=== PATIENT | male | born 1940 | race Caucasian/White ===

== ENCOUNTER 2018-10-05 11:58 | Inpatient (IN) | payer MEDICARE ==
[~2018-10-05] VITALS: Ht 152.4 cm; Wt 94.1 kg
[~2018-10-05 11:58] MED LIST: ANORO IH; ASPIRIN 81M81 MG/TA2 PO; BRILINTA90 MG PO; CARTIA XT120 MG PO; CLARITIN 1010 MG/TAB PO; GLUCOSAMINE & C1 CA1 PO; GOOD SENSE SLEE25 M1 PO; LIPITOR 80MG80 MG PO; LIPITOR20 MG PO; TOPROL XL 50MG50 MG PO; VASOTEC 2.2.5 MG/TAB PO
--- NOTE | 2018-10-15 08:48 | NUR ---
Pt arrived to room 306 ambulatory with admissions staff. Oriented to room and call light system. Will complete assessment. Pt is sitting up in the chair and he denies further needs. Call light within reach, will continue to monitor.
[2018-10-15] MEDS ORDERED: CARDIZEM CD 18180 MG PO (09:19)
[2018-10-15] MEDS ORDERED: COZAAR 25MG25 MG/TAB PO (09:20)
[2018-10-15] MEDS ORDERED: TESSALON P100 MG/CAP PO (09:21)
[2018-10-15] MEDS ORDERED: PLAVIX 75MG TAB75 MG PO (09:21)
[2018-10-15 09:23] LABS: BASO # 0.1 (0.0-0.2); BASO % 0.6 % (0.0-2.0); EOS # 0.7 (0.0-0.7); GRAN # 4.6 (1.4-6.5); GRAN % 56.9 % (42.2-75.2); HEMATOCRIT 39.3 % (42.0-52.0); HEMOGLOBIN 12.6 g/dl (13.5-18.0); MEAN CELL VOLUME 93 fl (80.0-100.0); MEAN CORPUSCULAR HEMOGLOBIN 30 pg (27.0-31.0); MEAN CORPUSCULAR HGB CONC 32 g/dl (33.0-37.0); MEAN PLATELET VOLUME 8.6 fl (7.4-10.4); MONO # 0.7 (0.1-0.6); MONO % 9.1 % (1.7-9.3); PLATELET COUNT 227 K/mm3 (130-400); RED BLOOD COUNT 4.22 M/mm3 (4.20-5.60); REDCELL DISTRIBUTION WIDTH-CV 14.6 % (11.5-14.5)
[2018-10-15] MEDS ORDERED: COUMADIN4 MG PO ×2 (09:24→09:25)
[2018-10-15 09:26] LABS: INR 4.4 (0.8-3.0)
[2018-10-15 09:27] LABS: PROTHROMBIN TIME 49.8 SECONDS (9.7-12.8)
[2018-10-15 09:30] LABS: BILIRUBIN,TOTAL 0.5 mg/dL (0.0-1.0); CREATININE, serum 1.23 (0.66-1.25); MAGNESIUM 2.2 mg/dL (1.6-2.3); POTASSIUM 4.2 mmol/L (3.4-5.0); TOTAL PROTEIN 7.8 gm/dL (6.4-8.2)
--- NOTE | 2018-10-15 10:40 | NUR ---
Assessment complete. Pt is AXO X3, denies having any pain at this time. Breathing is even and unlabored on room air. Tele on. 22G IV started to the pt's RA is free of complications and is CDI. Pt's is at the bedside; all questions answered. Pt is sitting up in the bed and he denies further needs. Call light within reach, will continue to monitor.
[2018-10-15 12:04] VITALS: BP 129/60; PULSE 90; TEMP 97.8
[2018-10-15 15:42] VITALS: BP 134/72; PULSE 85; TEMP 98.1
--- NOTE | 2018-10-15 18:11 | NUR ---
Since arriving to the floor the pt has been resting. He has remained free of pain. Pt's has been at the bedside; all questions answered. Pt is sitting up in the bed eating his dinner at this time and he denies further needs. Call light within reach.
--- NOTE | 2018-10-15 19:03 | NUR ---
Report given to LONDON Rousseau.
--- NOTE | 2018-10-15 19:09 | NUR ---
Sitting at bedside. Assessment complete. Lungs expiratory wheezing present. Heart sounds irregular otherwise normal. Bowels active x4. Pulses present throughout. +2 edema in bilateral lower legs. Denies pain. INT to right AC flushes without complications. Denies needs at this time. Denies pain. Call light in reach.
[2018-10-15 19:22] VITALS: BP 127/62; PULSE 88; TEMP 98.1
[2018-10-15] MEDS ORDERED: PREDFORTE15ML OP (21:26)
[2018-10-15 22:21] LABS: COLLECTION METHOD CLEAN CATCH
[2018-10-15 22:26] LABS: MUCOUS Present /lpf; PH 6 (5-8); SQUAMOUS EPITHELIAL None Seen /hpf; URINE APPEARANCE Clear; URINE BACTERIA None Seen /hpf; URINE BILIRUBIN Negative (NEGATIVE); URINE BLOOD Negative (NEGATIVE); URINE COLOR Yellow; URINE GLUCOSE Negative (NEGATIVE); URINE KETONE Negative (NEGATIVE); URINE LEUKOCYTE ESTERASE Negative (NEGATIVE); URINE NITRATE Negative (NEGATIVE); URINE PROTEIN(semi-quant) Negative (NEGATIVE); URINE UROBILINOGEN Negative (NEGATIVE)
[2018-10-15 23:50] VITALS: BP 145/79; PULSE 85; TEMP 97.9
--- NOTE | 2018-10-16 02:07 | NUR ---
Resting in bed asleep. Call light in reach.
--- NOTE | 2018-10-16 03:06 | NUR ---
Patient prednisolone eye drop continued per Rosa DISEASE MANAGEMENT NURSE. Patient has own eye drops in medication bin in med room
--- NOTE | 2018-10-16 04:11 | NUR ---
Resting in bed. Call light in reach.
[2018-10-16 04:25] VITALS: BP 120/54; PULSE 79; TEMP 97.7
--- NOTE | 2018-10-16 06:04 | NUR ---
Patient had uneventful night. Resting in bed this AM. Call light in reach.
[2018-10-16 06:07] LABS: HEMATOCRIT 37.8 % (42.0-52.0); HEMOGLOBIN 12.2 g/dl (13.5-18.0); MEAN CELL VOLUME 93 fl (80.0-100.0); MEAN CORPUSCULAR HEMOGLOBIN 30 pg (27.0-31.0); MEAN CORPUSCULAR HGB CONC 32 g/dl (33.0-37.0); MEAN PLATELET VOLUME 8.9 fl (7.4-10.4); PLATELET COUNT 211 K/mm3 (130-400); RED BLOOD COUNT 4.07 M/mm3 (4.20-5.60); REDCELL DISTRIBUTION WIDTH-CV 14.6 % (11.5-14.5)
[2018-10-16 06:17] LABS: ALBUMIN 3.4 gm/dL (3.5-5.0); BILIRUBIN,TOTAL 0.3 mg/dL (0.0-1.0); CALCIUM 8.8 mg/dL (8.4-10.2); CREATININE, serum 1.1 (0.66-1.25); POTASSIUM 4.1 mmol/L (3.4-5.0)
--- NOTE | 2018-10-16 07:09 | NUR ---
Report given to LONDON Duran
[2018-10-16 07:17] VITALS: BP 129/67; PULSE 86; TEMP 97.9
[2018-10-16 08:10] LABS: INR 3.1 (0.8-3.0); PROTHROMBIN TIME 35.2 SECONDS (9.7-12.8)
--- NOTE | 2018-10-16 10:28 | NUR ---
AM ASSESSMENT AND MEDICATIONS COMPLETED AT 0745. PATIENT SITTING UP ON SIDE OF BED EATING BREAKFAST. ATTITUDE CALM AND COOPERATIVE. DENIES NEEDS OR COMPLAINTS. TELEMETRY IN PLACE. DENIES CHEST PAIN OR SHORTNESS OF BREATHE. NO CONCERNS VOICED AT END OF VISIT.
[2018-10-16 11:26] VITALS: BP 125/61; PULSE 89; TEMP 98
--- NOTE | 2018-10-16 13:44 | NUR ---
JAMIE student met with the patient, his Barbra, and their son to discuss discharge planning. The patient lives in [place] with his . The patient reports independence with ADLs and has a cane, walker, and a wheel chair available at home if he needs it. The patient reports they have had home health services in the past. The reports she does not believe they need home health services at this time because they take care of each other at home. The patients PCP is Dr. Federico Gama and he gets his medications from [facility] on [address] [facility] [facility]. The patient reports no difficulties obtaining his medications. The patient does not have DPOA-HC in EMR but is interested in completing one. JAMIE provided DPOA-HC form. The patient plans to return home upon discharge with his and family support. No additional needs at this time.
--- NOTE | 2018-10-16 16:09 | NUR ---
STRESS TEST COMPLETED.PATIENT RETURNED TO ROOM.VORB FOR PATIENT TO EAT. TO ROUND ON PATIENT THIS AFTERNOON.PATIENT DENIES ANY NEEDS AT THIS TIME.WILL CONTINUE TO MONITOR.CALL LIGHT IN REACH
[2018-10-16 16:21] VITALS: BP 122/56; PULSE 80; TEMP 97.6
--- NOTE | 2018-10-16 18:35 | NUR ---
PATIENT LAYING IN BED WATCHING TV. FINISHED 100% OF SUPPER. DENIES C/O PAIN OR DISCOMFORT AT THIS TIME. COVER DRESSING TO UPPER MID STERNAL CHEST CLEAN DRY AND INTACT FROM LOOP RECORDER INSERTION THIS AM. ATTITUDE CALM AND PLEASANT. DENIES NEEDS AT THIS TIME.
--- NOTE | 2018-10-16 18:58 | NUR ---
REPORT GIVEN TO LONDON ANDRADE.
--- NOTE | 2018-10-16 19:05 | NUR ---
Report received from LONDON Duran. Sitting at bedside. Visiting with son. Denies needs at this time.
--- NOTE | 2018-10-16 20:45 | NUR ---
Resting in bed. Assessment complete. Wheezing on expiration throughout all lung brown. Denies any shortness of breath. Heart sounds normal. Bowels active x4. Pulses present throughout. Bilateral lower leg edema +1. INT to right AC flushes without complications. Midchest incision from loop recorder covered with gauze and tape dressing. No signs of complications. Denies pain. Denies needs at this time. Call light in reach.
[2018-10-16 21:18] VITALS: BP 138/68; PULSE 86; TEMP 97.6
[2018-10-17] VITALS (7 sets, daily range): BP systolic 111–136; BP diastolic 60–80; PULSE 67–87; TEMP 97.6–98.2
--- NOTE | 2018-10-17 00:28 | NUR ---
Resting in bed. denies needs. Denies pain. Loop recorder site without complications, dressing CDI. Call light in reach.
--- NOTE | 2018-10-17 04:12 | NUR ---
Resting in bed. Loop recorder site CDI. Denies pain. Denies needs at this time. Call light in reach.
--- NOTE | 2018-10-17 06:06 | NUR ---
Patient had uneventful night. Resting in bed this AM. Loop recorder site without complications.
[2018-10-17 06:27] LABS: BASO % 0.4 % (0.0-2.0); EOS # 0.4 (0.0-0.7); EOS % 4.6 % (0-4.0); GRAN # 5.4 (1.4-6.5); GRAN % 66.4 % (42.2-75.2); HEMATOCRIT 37.3 % (42.0-52.0); HEMOGLOBIN 11.8 g/dl (13.5-18.0); LYMPH # 1.7 (1.2-3.4); LYMPH % 20.6 % (20.0-51.0); MEAN CELL VOLUME 94 fl (80.0-100.0); MEAN CORPUSCULAR HEMOGLOBIN 30 pg (27.0-31.0); MEAN CORPUSCULAR HGB CONC 32 g/dl (33.0-37.0); MEAN PLATELET VOLUME 8.6 fl (7.4-10.4); MONO # 0.6 (0.1-0.6); MONO % 7.8 % (1.7-9.3); PLATELET COUNT 202 K/mm3 (130-400); RED BLOOD COUNT 3.97 M/mm3 (4.20-5.60); REDCELL DISTRIBUTION WIDTH-CV 14.5 % (11.5-14.5)
[2018-10-17 06:28] LABS: PROTHROMBIN TIME 22.9 SECONDS (9.7-12.8)
[2018-10-17 06:38] LABS: ALBUMIN 3.7 gm/dL (3.5-5.0); BILIRUBIN,TOTAL 0.4 mg/dL (0.0-1.0); CALCIUM 8.9 mg/dL (8.4-10.2); CREATININE, serum 1.05 (0.66-1.25); POTASSIUM 4.4 mmol/L (3.4-5.0); TOTAL PROTEIN 7.2 gm/dL (6.4-8.2)
--- NOTE | 2018-10-17 07:02 | NUR ---
Report given to LONDON Duran
--- NOTE | 2018-10-17 09:52 | NUR ---
Assessment complete.patient awake,a/ox3.denies pain or discomfort at this time.remains on amiodorone.QTc stable.Vss.loop recorder site to chest is CDI.no other needs voiced at this time.will continue to monitor.call light in reach
--- NOTE | 2018-10-17 12:12 | NUR ---
First visit from the motel manager. No needs right now.
--- NOTE | 2018-10-17 16:01 | NUR ---
The patient completed DPOA-HC and designated his , Maria Elena, and son, Flash. SW and SW student witnessed the patient sign. Copy placed in his chart and original and copies were given to the patient.
--- NOTE | 2018-10-17 18:24 | NUR ---
PT HAS HAD AN UNEVENTFUL DAY.PATIENT'S VITALS REMAIN STABLE.PATIENT HAS BEEN AMBULATING IN [place] FOR MOST OF THIS SHIFT.NO OTHER CONCERNS VOICED AT THIS TIME.WILL CONTINUE TO MONITOR.CALL LIGHT IN REACH
--- NOTE | 2018-10-17 18:57 | NUR ---
REPORT GIVEN TO LONDON ARANGO.
--- NOTE | 2018-10-17 19:39 | NUR ---
Patient resting in recliner, watching tv. Assessment completed- lungs clear, abdominal sounds active, pulses +2 pedal, +3 radial, alert and oriented, independent in room, evening medications administered. IV site flushed, no complications. On telemetry. No needs at this time.
[2018-10-18 03:04] VITALS: BP 103/65; PULSE 80; TEMP 98.1
--- NOTE | 2018-10-18 04:59 | NUR ---
Pt slept most of the shift after recieving PRN ambien. VSS, no reports of pain. LOop recorder site C/D/I.
--- NOTE | 2018-10-18 06:40 | NUR ---
REPORT GIVEN TO LONDON NGUYEN.
--- NOTE | 2018-10-18 07:10 | NUR ---
Received report. Patient is awake and alert in bed watching TV. No needs identified. Call light and personal items are within reach.
[2018-10-18 07:11] LABS: BASO % 0.4 % (0.0-2.0); EOS # 0.3 (0.0-0.7); EOS % 4.4 % (0-4.0); GRAN # 4.5 (1.4-6.5); GRAN % 63.8 % (42.2-75.2); HEMOGLOBIN 12.8 g/dl (13.5-18.0); LYMPH # 1.7 (1.2-3.4); LYMPH % 23.3 % (20.0-51.0); MEAN CELL VOLUME 92 fl (80.0-100.0); MEAN CORPUSCULAR HEMOGLOBIN 30 pg (27.0-31.0); MEAN CORPUSCULAR HGB CONC 32 g/dl (33.0-37.0); MEAN PLATELET VOLUME 8.8 fl (7.4-10.4); MONO # 0.6 (0.1-0.6); MONO % 7.8 % (1.7-9.3); PLATELET COUNT 217 K/mm3 (130-400); RED BLOOD COUNT 4.34 M/mm3 (4.20-5.60); REDCELL DISTRIBUTION WIDTH-CV 14.4 % (11.5-14.5)
[2018-10-18 07:13] LABS: INR 1.8 (0.8-3.0)
[2018-10-18 07:16] LABS: ALBUMIN 3.7 gm/dL (3.5-5.0); BILIRUBIN,TOTAL 0.5 mg/dL (0.0-1.0); CALCIUM 9.1 mg/dL (8.4-10.2); CREATININE, serum 1.13 (0.66-1.25); POTASSIUM 4.3 mmol/L (3.4-5.0); TOTAL PROTEIN 7.4 gm/dL (6.4-8.2)
[2018-10-18 07:21] VITALS: BP 135/57; PULSE 82; TEMP 98.1
[2018-10-18 11:07] VITALS: BP 137/63; PULSE 83; TEMP 97.1
[2018-10-18 15:58] VITALS: BP 102/74; PULSE 80; TEMP 98.3
--- NOTE | 2018-10-18 17:02 | NUR ---
Patient was observed ambulating in [place], gait is steady. He denies pain at this time. is in room. No needs identified. Call light and personal items are within reach.
[2018-10-18 19:19] VITALS: BP 101/70; PULSE 81; TEMP 98
--- NOTE | 2018-10-18 21:54 | NUR ---
Patient resting in bed, assessment completed- see shift assessment for details. Denies pain, VSS. Given evening medications. Will ask for ambien when ready to go to sleep. No further needs at this time.
[2018-10-18 23:07] VITALS: BP 117/59; PULSE 82; TEMP 97.5
[2018-10-19 03:10] VITALS: BP 101/55; PULSE 72; TEMP 98.4
--- NOTE | 2018-10-19 05:00 | NUR ---
Patient slept for most of the night, VSS, no reports of pain, afebrile. No needs at this time.
--- NOTE | 2018-10-19 06:42 | NUR ---
report given to LONDON Lauren.
--- NOTE | 2018-10-19 06:53 | NUR ---
Received report. Patient is sitting up in bed watching TV. Verbalizes he is excited to go home today. Denies having any pain. Personal items and call light is within reach.
[2018-10-19 07:13] LABS: BASO % 0.4 % (0.0-2.0); EOS # 0.4 (0.0-0.7); EOS % 5.4 % (0-4.0); GRAN # 4.5 (1.4-6.5); GRAN % 60.7 % (42.2-75.2); HEMATOCRIT 37.7 % (42.0-52.0); HEMOGLOBIN 12.3 g/dl (13.5-18.0); LYMPH # 1.8 (1.2-3.4); LYMPH % 24.1 % (20.0-51.0); MEAN CELL VOLUME 92 fl (80.0-100.0); MEAN CORPUSCULAR HEMOGLOBIN 30 pg (27.0-31.0); MEAN CORPUSCULAR HGB CONC 33 g/dl (33.0-37.0); MEAN PLATELET VOLUME 8.9 fl (7.4-10.4); MONO # 0.7 (0.1-0.6); MONO % 9.3 % (1.7-9.3); PLATELET COUNT 226 K/mm3 (130-400); RED BLOOD COUNT 4.11 M/mm3 (4.20-5.60); REDCELL DISTRIBUTION WIDTH-CV 14.6 % (11.5-14.5)
[2018-10-19 07:21] VITALS: BP 145/64; PULSE 82; TEMP 97.8
[2018-10-19 07:27] LABS: PROTHROMBIN TIME 22.9 SECONDS (9.7-12.8)
[2018-10-19 07:41] LABS: ALBUMIN 3.7 gm/dL (3.5-5.0); BILIRUBIN,TOTAL 0.4 mg/dL (0.0-1.0); CREATININE, serum 1.2 (0.66-1.25); POTASSIUM 4.2 mmol/L (3.4-5.0); TOTAL PROTEIN 7.3 gm/dL (6.4-8.2)
[2018-10-19] MEDS ORDERED: COUMADIN4 MG PO (11:31)
[2018-10-19] MEDS ORDERED: COUMADIN 2MG2 MG/TAB PO (11:33)
[2018-10-19] MEDS ORDERED: CARDIZEM120 MG PO (11:39)
[2018-10-19] MEDS ORDERED: PACERONE200 MG PO (11:41)
--- NOTE | 2018-10-19 12:31 | NUR ---
The patient is to discharge back home with his today, 10/19. SW presented and explained the IM form to the patient. The patient verbalized understanding, signed, and he was provided a copy. No additional needs at this time.
--- NOTE | 2018-10-19 12:39 | NUR ---
Patient discharged home with and grandson. All personal belongings sent with patient. Escorted out by staff via wheelchair.
== END 2018-10-19 12:39 | disposition home or self-care (01) | DRG 261 ==
LOC: MEDICAL 10-15 08:39
PROVIDERS: Nurse Practitioner; Nurse Practitioner Family; Physician Assistant; ADMIT Internal Medicine Cardiovascular Disease
PROC: 4A1234Z Monitoring of Cardiac Electrical Activity, Percutaneous Approach (ICD-10-PCS; principal; 2018-10-16)
PROC: 0JH632Z Insertion of Monitoring Device into Chest Subcutaneous Tissue and Fascia, Percutaneous Approach (ICD-10-PCS; principal; 2018-10-16)
DX: I47.2 Ventricular tachycardia (principal); I25.810 Atherosclerosis of coronary artery bypass graft(s) without angina pectoris; I42.9 Cardiomyopathy, unspecified; I48.91 Unspecified atrial fibrillation; I25.10 Atherosclerotic heart disease of native coronary artery without angina pectoris; I10 Essential (primary) hypertension; Z95.1 Presence of aortocoronary bypass graft; Z95.5 Presence of coronary angioplasty implant and graft; E78.5 Hyperlipidemia, unspecified; J44.9 Chronic obstructive pulmonary disease, unspecified; I27.20 Pulmonary hypertension, unspecified; Z87.891 Personal history of nicotine dependence; Z79.01 Long term (current) use of anticoagulants; R41.3 Other amnesia; Z51.81 Encounter for therapeutic drug level monitoring; E11.9 Type 2 diabetes mellitus without complications
CPT/HCPCS: 99223; 99231-AI; 99232-AI; C1764

== ENCOUNTER 2019-04-17 15:58 | Inpatient (IN) | payer MEDICARE ==
[~2019-04-17] VITALS: Ht 172.7 cm; Wt 95.7 kg
[~2019-04-17 15:58] MED LIST changes: -ANORO IH; +CARDIZEM CD 18180 MG PO; +CARDIZEM120 MG PO; +COUMADIN 2MG2 MG/TAB PO; +COUMADIN4 MG PO; +COZAAR 25MG25 MG/TAB PO; +PACERONE200 MG PO; +PLAVIX 75MG TAB75 MG PO; +PREDFORTE15ML OP; +TESSALON P100 MG/CAP PO; +TRELEGY ELLIPT1 EACH IH
[2019-04-22] VITALS (393 sets, daily range): BP systolic 119–142; BP diastolic 72–84; PULSE 76–80; TEMP 97.4–98.1; O2SAT 75–99
[2019-04-22] MEDS ORDERED: ELIQUIS 5MG PO (09:55)
[2019-04-22] MEDS ORDERED: VITAMIN D31000 I1 PO (09:55)
[2019-04-22] MEDS ORDERED: UNISOM25 MG PO (09:56)
[2019-04-22] MEDS ORDERED: LASIX 20MG TABL20 MG PO (09:56)
[2019-04-22] MEDS ORDERED: COZAAR 25MG25 MG/TAB PO (09:57)
[2019-04-22] MEDS ORDERED: TOPROL XL 25MG25 MG PO (09:57)
[2019-04-22] MEDS ORDERED: NATURAL E400 IU PO (09:58)
[2019-04-22 10:02] LABS: CALCIUM 8.9 mg/dL (8.4-10.2); CREATININE, serum 1.17 (0.66-1.25); MAGNESIUM 2.1 mg/dL (1.6-2.3); POTASSIUM 4.5 mmol/L (3.4-5.0)
[2019-04-23] VITALS (410 sets, daily range): BP systolic 114–131; BP diastolic 58–73; PULSE 55–87; TEMP 97.7–98.6; O2SAT 85–100
[2019-04-23 05:56] LABS: BASO % 0.4 % (0.0-2.0); EOS # 0.4 (0.0-0.7); EOS % 5.2 % (0-4.0); GRAN # 3.9 (1.4-6.5); GRAN % 56.8 % (42.2-75.2); HEMATOCRIT 38.7 % (42.0-52.0); HEMOGLOBIN 12.2 g/dl (13.5-18.0); LYMPH # 1.9 (1.2-3.4); LYMPH % 27.3 % (20.0-51.0); MEAN CELL VOLUME 93 fl (80.0-100.0); MEAN CORPUSCULAR HEMOGLOBIN 29 pg (27.0-31.0); MEAN CORPUSCULAR HGB CONC 32 g/dl (33.0-37.0); MEAN PLATELET VOLUME 8.8 fl (7.4-10.4); MONO # 0.7 (0.1-0.6); PLATELET COUNT 194 K/mm3 (130-400); RED BLOOD COUNT 4.15 M/mm3 (4.20-5.60); REDCELL DISTRIBUTION WIDTH-CV 14.4 % (11.5-14.5)
[2019-04-23 06:09] LABS: CALCIUM 9.2 mg/dL (8.4-10.2); CREATININE, serum 1.15 (0.66-1.25); MAGNESIUM 2.2 mg/dL (1.6-2.3); POTASSIUM 4.2 mmol/L (3.4-5.0)
[2019-04-24] VITALS (7 sets, daily range): BP systolic 97–128; BP diastolic 48–81; PULSE 70–84; TEMP 97.5–98.6
[2019-04-24 06:19] LABS: BASO % 0.5 % (0.0-2.0); EOS # 0.5 (0.0-0.7); EOS % 5.2 % (0-4.0); GRAN # 5.1 (1.4-6.5); GRAN % 57.5 % (42.2-75.2); HEMATOCRIT 37.5 % (42.0-52.0); HEMOGLOBIN 11.8 g/dl (13.5-18.0); LYMPH # 2.4 (1.2-3.4); LYMPH % 27.5 % (20.0-51.0); MEAN CELL VOLUME 92 fl (80.0-100.0); MEAN CORPUSCULAR HEMOGLOBIN 29 pg (27.0-31.0); MEAN CORPUSCULAR HGB CONC 32 g/dl (33.0-37.0); MEAN PLATELET VOLUME 9.1 fl (7.4-10.4); MONO # 0.8 (0.1-0.6); MONO % 8.8 % (1.7-9.3); PLATELET COUNT 209 K/mm3 (130-400); RED BLOOD COUNT 4.08 M/mm3 (4.20-5.60); REDCELL DISTRIBUTION WIDTH-CV 14.5 % (11.5-14.5)
[2019-04-24 06:35] LABS: CALCIUM 8.9 mg/dL (8.4-10.2); CREATININE, serum 1.31 (0.66-1.25); MAGNESIUM 2.2 mg/dL (1.6-2.3)
[2019-04-25 03:24] VITALS: BP 113/66; PULSE 81; TEMP 97.7
[2019-04-25 06:17] LABS: BASO % 0.5 % (0.0-2.0); EOS # 0.5 (0.0-0.7); EOS % 6.2 % (0-4.0); GRAN # 4.3 (1.4-6.5); HEMATOCRIT 37.8 % (42.0-52.0); HEMOGLOBIN 12.2 g/dl (13.5-18.0); LYMPH # 2.4 (1.2-3.4); MEAN CELL VOLUME 92 fl (80.0-100.0); MEAN CORPUSCULAR HEMOGLOBIN 30 pg (27.0-31.0); MEAN CORPUSCULAR HGB CONC 32 g/dl (33.0-37.0); MEAN PLATELET VOLUME 8.8 fl (7.4-10.4); MONO # 0.7 (0.1-0.6); PLATELET COUNT 204 K/mm3 (130-400); RED BLOOD COUNT 4.12 M/mm3 (4.20-5.60); REDCELL DISTRIBUTION WIDTH-CV 14.4 % (11.5-14.5)
[2019-04-25 06:47] LABS: CALCIUM 8.9 mg/dL (8.4-10.2); CREATININE, serum 1.45 (0.66-1.25); MAGNESIUM 2.2 mg/dL (1.6-2.3); POTASSIUM 4.2 mmol/L (3.4-5.0)
[2019-04-25 07:20] VITALS: BP 123/67; PULSE 71; TEMP 97.9
[2019-04-25 10:55] VITALS: BP 111/54; PULSE 77; TEMP 98.4
[2019-04-25] MEDS ORDERED: TIKOSYN0.25 MG PO (12:56)
[2019-04-25] MEDS ORDERED: TIKOSYN0.125 MG PO (12:56)
== END 2019-04-25 16:45 | disposition home or self-care (01) | DRG 310 ==
LOC: IMCU 04-22 08:51 → ICU 04-22 08:51 → IMCU 04-22 12:29 → MEDICAL 04-22 13:27
PROVIDERS: ADMIT Internal Medicine Cardiovascular Disease
DX: I48.91 Unspecified atrial fibrillation (principal); J44.9 Chronic obstructive pulmonary disease, unspecified; I10 Essential (primary) hypertension; I27.20 Pulmonary hypertension, unspecified; E11.9 Type 2 diabetes mellitus without complications; I44.0 Atrioventricular block, first degree; I25.10 Atherosclerotic heart disease of native coronary artery without angina pectoris; Z95.1 Presence of aortocoronary bypass graft; Z87.891 Personal history of nicotine dependence; Z95.820 Peripheral vascular angioplasty status with implants and grafts